=== PATIENT | male | born 1935 | race Caucasian/White ===

== ENCOUNTER 2017-08-26 12:10 | Inpatient (IN) | payer MEDICARE, BC ==
[2017-08-26] MEDS ORDERED: PANTOPRAZOLE 40 MG/10 ML VIAL IVP STA (12:38)
--- NOTE | 2017-08-26 12:42 | ED ---
General Adult HPI - General Chief complaint: GI Bleed Stated complaint: Black Stool Time Seen by Provider: 08/26/17 12:30 Source: patient Mode of arrival: ambulatory Limitations: no limitations - History of Present Illness Initial comments: Maicol Avery is an 81-year-old male with a past medical history significant for A. 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 Patient presents to the emergency department today for evaluation of black stools. Patient reports that a little over one week ago he was diagnosed with gout, he was prescribed a medication which he believes was allopurinol. He reports that taking this medication caused him some abdominal cramping and GI upset so he discontinue the medication. He reports that he has been able to eat and drink a normal diet since that time. He reports that he was in his usual state of health yesterday. Patient reports he woke this morning and had a bowel movement that was dark black, he has been advised in the past that dark black stools could indicate bleeding in his GI tract so he came to the emergency department for evaluation. Patient reports that today he is feeling somewhat fatigued and mildly lightheaded with activity. He denies any abdominal pain, chest pain, shortness of breath. Orts he has been on Coumadin for a long period of time, he believes he last had his INR checked last month. He does not report any significant increase in his bruising, he denies any other spontaneous bleeding including nosebleeds or bleeding from the gums. She denies any history of gastric ulcers or GI bleeding in the past aside from expected post operative bleeding which she experienced after the Whipple. - Related Data Home Medications Medication Instructions Recorded Confirmed Albuterol Sulfate [Proair Hfa] 1 - 2 puff INHALATION RT-Q6H PRN 08/24/14 Ascorbic Acid [Vitamin C] 1 tab PO DAILY 08/24/14 08/26/17 Atenolol 25 mg PO HS 08/24/14 08/26/17 Budesonide [Pulmicort] 0.5 mg INHALATION RT-BID 08/24/14 08/26/17 Calcium Polycarbophil [Fibercon] 625 mg PO BID 08/24/14 08/26/17 Cholecalciferol [Vitamin D3] 1 tab PO DAILY 08/24/14 08/26/17 Montelukast [Singulair] 10 mg PO HS 08/24/14 08/26/17 Pravastatin Sodium [Pravachol] 20 mg PO HS 08/24/14 08/26/17 Glucosam/Az-Msm1/C/Tarun/Bosw 1 tab PO BID 10/21/14 08/26/17 [Glucosamine-Chondroitin Tablet] Creon (Unknown Dose) 1 cap PO AC-TID 08/26/17 08/26/17 Furosemide [Lasix] 20 mg PO QAM PRN 08/26/17 08/26/17 Omeprazole 20 mg PO DAILY PRN 08/26/17 08/26/17 Previous Rx's Medication Instructions Recorded Losartan [Cozaar] 25 mg PO DAILY #30 tab 08/28/14 Allergies Allergy/AdvReac Type Severity Reaction Status Date / Time amoxicillin Allergy Unknown Verified 08/26/17 12:50 shellfish derived [Shrimp] AdvReac Nausea & Verified 08/26/17 12:50 Vomiting Review of Systems ROS Statement: Those systems with pertinent positive or pertinent negative responses have been documented in the HPI. ROS Other: All systems not noted in ROS Statement are negative. Constitutional: Denies: fever, chills Respiratory: Denies: cough, dyspnea Cardiovascular: Denies: chest pain, palpitations Endocrine: Reports: fatigue Gastrointestinal: Reports: abdominal pain, melena Genitourinary: Denies: urgency, dysuria, hematuria Musculoskeletal: Denies: back pain Skin: Denies: rash, lesions Neurological: Denies: headache, weakness Psychiatric: Denies: anxiety, depression Hematological/Lymphatic: Reports: easy bleeding, easy bruising Past Medical History Past Medical History: Atrial Fibrillation, Asthma, COPD, Hyperlipidemia, Hypertension Additional Past Medical History / Comment(s): irregular heart History of Any Multi-Drug Resistant Organisms: None Reported Past Surgical History: Orthopedic Surgery Additional Past Surgical History / Comment(s): right ankle, umbilical and right shoulder, right knee replaced, pancreatic surgery Past Anesthesia/Blood Transfusion Reactions: No Reported Reaction Past Psychological History: No Psychological Hx Reported Smoking Status: Never smoker Past Alcohol Use History: None Reported Past Drug Use History: None Reported - Past Family History Mother Family Medical History: Renal Disease Brother(s) Family Medical History: Diabetes Mellitus General Exam Limitations: no limitations General appearance: alert, in no apparent distress Head exam: Present: atraumatic, normocephalic Eye exam: Present: normal appearance, PERRL ENT exam: Present: normal exam Respiratory exam: Absent: respiratory distress Cardiovascular Exam: Present: regular rate, irregular rhythm GI/Abdominal exam: Present: soft. Absent: distended, tenderness Rectal exam: Present: normal inspection, normal rectal tone, heme (+) stool, black stool, bloody stool Extremities exam: Present: normal inspection Back exam: Present: normal inspection Neurological exam: Present: alert, oriented X3 Psychiatric exam: Present: normal affect, normal mood Skin exam: Present: warm, dry, pallor Course Vital Signs 08/26/17 08/26/17 08/26/17 12:23 12:56 13:32 Temperature 98.3 F Pulse Rate 82 80 90 Respiratory 16 16 16 Rate Blood Pressure 131/71 126/73 118/74 O2 Sat by Pulse 93 L 98 98 Oximetry 08/26/17 15:01 Temperature 97.6 F Pulse Rate 72 Respiratory 16 Rate Blood Pressure 127/78 O2 Sat by Pulse 96 Oximetry Medical Decision Making - Medical Decision Making Patient was seen and evaluated, history was obtained from the patient, his and review of medical record Patient on Coumadin now experiencing black bloody stools Patient has mild conjunctival pallor, rectal exam reveals melanotic stool Labs were ordered IV Protonix ordered Reveal hemoglobin of 12.3 which is a decrease from the previous hemoglobin of 14.0 in the fall of 2015 INR is 3.2, this is slightly above goal At this time I feel the patient requires admission for further evaluation by gastroenterology, this plan was discussed with the patient and his at bedside who are agreeable Patient care was discussed with Dr. Craig subsequent admission, recommended we hold by mouth Coumadin and consult gastroenterology admission and consult orders were placed Patient remained hemodynamically stable throughout his ED stay - Lab Data Result diagrams: 08/26/17 12:45 08/26/17 12:45 Lab Results 08/26/17 08/26/17 08/26/17 Range/Units 12:45 12:45 12:45 WBC 12.0 H (3.8-10.6) k/uL RBC 4.01 L (4.30-5.90) m/uL Hgb 12.3 L (13.0-17.5) gm/dL Hct 36.3 L (39.0-53.0) % MCV 90.5 (80.0-100.0) fL MCH 30.6 (25.0-35.0) pg MCHC 33.7 (31.0-37.0) g/dL RDW 14.0 (11.5-15.5) % Plt Count 248 (150-450) k/uL Neutrophils % 80 % Lymphocytes % 12 % Monocytes % 5 % Eosinophils % 1 % Basophils % 0 % Neutrophils # 9.6 H (1.3-7.7) k/uL Lymphocytes # 1.4 (1.0-4.8) k/uL Monocytes # 0.6 (0-1.0) k/uL Eosinophils # 0.1 (0-0.7) k/uL Basophils # 0.1 (0-0.2) k/uL PT (9.0-12.0) sec INR (<1.2) APTT (22.0-30.0) sec Sodium 145 (137-145) mmol/L Potassium 4.4 (3.5-5.1) mmol/L Chloride 108 H (98-107) mmol/L Carbon Dioxide 22 (22-30) mmol/L Anion Gap 15 mmol/L BUN 45 H (9-20) mg/dL Creatinine 1.30 H (0.66-1.25) mg/dL Est GFR (CKD-EPI)AfAm 60 (>60 ml/min/1.73 sqM) Est GFR (CKD-EPI)NonAf 52 (>60 ml/min/1.73 sqM) Glucose 120 H (74-99) mg/dL Plasma Lactic Acid Jose A 1.6 (0.7-2.0) mmol/L Calcium 9.5 (8.4-10.2) mg/dL Total Bilirubin 0.5 (0.2-1.3) mg/dL AST 24 (17-59) U/L ALT 26 (21-72) U/L Alkaline Phosphatase 79 (38-126) U/L Troponin I (0.000-0.034) ng/mL Total Protein 6.6 (6.3-8.2) g/dL Albumin 4.0 (3.5-5.0) g/dL Stool Occult Blood (Negative) Blood Type Blood Type Recheck Antibody Screen Spec Expiration Date 08/26/17 08/26/17 08/26/17 Range/Units 12:45 12:45 12:45 WBC (3.8-10.6) k/uL RBC (4.30-5.90) m/uL Hgb (13.0-17.5) gm/dL Hct (39.0-53.0) % MCV (80.0-100.0) fL MCH (25.0-35.0) pg MCHC (31.0-37.0) g/dL RDW (11.5-15.5) % Plt Count (150-450) k/uL Neutrophils % % Lymphocytes % % Monocytes % % Eosinophils % % Basophils % % Neutrophils # (1.3-7.7) k/uL Lymphocytes # (1.0-4.8) k/uL Monocytes # (0-1.0) k/uL Eosinophils # (0-0.7) k/uL Basophils # (0-0.2) k/uL PT 29.0 H (9.0-12.0) sec INR 3.2 H (<1.2) APTT 32.3 H (22.0-30.0) sec Sodium (137-145) mmol/L Potassium (3.5-5.1) mmol/L Chloride (98-107) mmol/L Carbon Dioxide (22-30) mmol/L Anion Gap mmol/L BUN (9-20) mg/dL Creatinine (0.66-1.25) mg/dL Est GFR (CKD-EPI)AfAm (>60 ml/min/1.73 sqM) Est GFR (CKD-EPI)NonAf (>60 ml/min/1.73 sqM) Glucose (74-99) mg/dL Plasma Lactic Acid Jose A (0.7-2.0) mmol/L Calcium (8.4-10.2) mg/dL Total Bilirubin (0.2-1.3) mg/dL AST (17-59) U/L ALT (21-72) U/L Alkaline Phosphatase (38-126) U/L Troponin I 0.021 (0.000-0.034) ng/mL Total Protein (6.3-8.2) g/dL Albumin (3.5-5.0) g/dL Stool Occult Blood Positive (Negative) Blood Type Blood Type Recheck Antibody Screen Spec Expiration Date 08/26/17 Range/Units 12:45 WBC (3.8-10.6) k/uL RBC (4.30-5.90) m/uL Hgb (13.0-17.5) gm/dL Hct (39.0-53.0) % MCV (80.0-100.0) fL MCH (25.0-35.0) pg MCHC (31.0-37.0) g/dL RDW (11.5-15.5) % Plt Count (150-450) k/uL Neutrophils % % Lymphocytes % % Monocytes % % Eosinophils % % Basophils % % Neutrophils # (1.3-7.7) k/uL Lymphocytes # (1.0-4.8) k/uL Monocytes # (0-1.0) k/uL Eosinophils # (0-0.7) k/uL Basophils # (0-0.2) k/uL PT (9.0-12.0) sec INR (<1.2) APTT (22.0-30.0) sec Sodium (137-145) mmol/L Potassium (3.5-5.1) mmol/L Chloride (98-107) mmol/L Carbon Dioxide (22-30) mmol/L Anion Gap mmol/L BUN (9-20) mg/dL Creatinine (0.66-1.25) mg/dL Est GFR (CKD-EPI)AfAm (>60 ml/min/1.73 sqM) Est GFR (CKD-EPI)NonAf (>60 ml/min/1.73 sqM) Glucose (74-99) mg/dL Plasma Lactic Acid Jose A (0.7-2.0) mmol/L Calcium (8.4-10.2) mg/dL Total Bilirubin (0.2-1.3) mg/dL AST (17-59) U/L ALT (21-72) U/L Alkaline Phosphatase (38-126) U/L Troponin I (0.000-0.034) ng/mL Total Protein (6.3-8.2) g/dL Albumin (3.5-5.0) g/dL Stool Occult Blood (Negative) Blood Type O Positive Blood Type Recheck No Antibody Screen NEGATIVE Spec Expiration Date 08/29/2017 - 2345 Disposition Clinical Impression: Melena, Upper gastrointestinal hemorrhage Disposition: ADMITTED IP TO THIS [facility] Condition: Good Is patient prescribed a controlled substance at d/c from ED?: No Decision Date: 08/26/17 Decision Time: 13:48
[2017-08-26 13:13] LABS: Basophils # (A) 0.1 k/uL (0-0.2); Basophils % (A) 0 %; Eosinophils # (A) 0.1 k/uL (0-0.7); Eosinophils % (A) 1 %; HCT 36.3 % (39.0-53.0); HGB 12.3 gm/dL (13.0-17.5); Lymphocytes # (A) 1.4 k/uL (1.0-4.8); Lymphocytes % (A) 12 %; MCH 30.6 pg (25.0-35.0); MCHC 33.7 g/dL (31.0-37.0); MCV 90.5 fL (80.0-100.0); Mean Platelet Volume 8.5; Monocytes # (A) 0.6 k/uL (0-1.0); Monocytes % (A) 5 %; Neutrophils # (A) 9.6 k/uL (1.3-7.7); Neutrophils % (A) 80 %; Platelet Count 248 k/uL (150-450); RBC 4.01 m/uL (4.30-5.90)
[2017-08-26 13:18] LABS: INR 3.2 (<1.2); Partial Thromboplastin Time 32.3 sec (22.0-30.0)
[2017-08-26 13:20] LABS: Calcium 9.5 mg/dL (8.4-10.2); Potassium 4.4 mmol/L (3.5-5.1); Total Bilirubin 0.5 mg/dL (0.2-1.3); Total Protein 6.6 g/dL (6.3-8.2)
[2017-08-26] MEDS ORDERED: NALOXONE 0.4 MG/ML 1 ML VIAL IV PRN ×2 (13:42→15:56)
[2017-08-26] MEDS ORDERED: FUROSEMIDE 40 MG TAB PO PRN (13:45)
[2017-08-26] MEDS ORDERED: PHYTONADIONE ORAL 5 MG/5 ML ORAL.SYRG PO STA (16:56)
--- NOTE | 2017-08-26 17:06 | P.HPIM ---
History of Present Illness H&P Date: 08/26/17 Chief Complaint: Melena This is an 81-year-old gentleman patient of Dr. Andre Martinez. He has underlying history of chronic atrial fibrillation on maintenance Coumadin for anticoagulation, history of pancreatic lesion, they suspected that this 95% cancer that time, however and was taken out with a Whipple's procedure 2014, this was benign. Since then patient was on Creon, also history of asthma, COPD , hyperlipidemia, hypertension, Patient presented to the emergency room secondary to acute melena that started this morning, he has 2 black stools, without diarrhea no hematochezia. Patient denies any NSAID use, steroid, and denies any alcohol use. He is chronically on intermittent dosing for Prilosec as advised by her [facility] physician, patient. He had abdominal pain approximately one week ago, not cramping epigastric region, patient thought this was related to the gout medication "allopurinol" ? that was started, as the uric acid level was high and that he does have toe pain. 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 Patient was admitted to ICU, for closer monitoring, Coumadin will be held, one- time dose of by mouth vitamin K 5 mg, Review of Systems Constitutional: Reports as per HPI, Denies anorexia, Denies chills, Denies chronic headaches, Denies chronic pain, Denies daytime sleepiness, Denies fatigue, Denies fever, Denies lethargy, Denies malaise, Denies night sweats, Denies poor appetite, Denies sweats, Denies weakness, Denies weight gain, Denies weight loss Ears, nose, mouth and throat: Reports as per HPI, Denies ant. neck pain, Denies bleeding gums, Denies dental pain, Denies dysphagia, Denies epistaxis, Denies headache, Denies hoarseness, Denies mouth pain, Denies nasal congestion, Denies nasal discharge, Denies neck fullness/pressure, Denies neck lump, Denies nose pain, Denies odynophagia, Denies post-nasal drip, Denies sinus pain, Denies sinus pressure, Denies swelling in mouth, Denies swelling in throat, Denies sore throat, Denies vertigo, Denies voice changes Cardiovascular: Reports as per HPI, Denies chest pain, Denies claudication, Denies decreased exercise tolerance, Denies dyspnea on exertion, Denies edema, Denies high blood pressure, Denies irregular heart beat, Denies leg edema, Denies lightheadedness, Denies orthopnea, Denies palpitations, Denies paroxysmal nocturnal dyspnea, Denies phlebitis, Denies rapid heart beat, Denies shortness of breath, Denies syncope Respiratory: Reports as per HPI, Denies congestion, Denies cough, Denies cough with sputum, Denies dyspnea, Denies excessive sputum, Denies hemoptysis, Denies home oxygen, Denies pain, Denies pain on inspiration, Denies pleurisy, Denies respiratory infections, Denies sleep apnea, Denies snoring, Denies wheezing Gastrointestinal: Reports as per HPI, Reports abdominal pain, Reports coffee ground emesis, Reports indigestion, Reports melena, Denies belching, Denies bloating, Denies BRBPR, Denies change in bowel habits, Denies constipation, Denies diarrhea, Denies dyspepsia, Denies early satiety, Denies excessive gas, Denies heartburn, Denies hematemesis, Denies hematochezia, Denies jaundice, Denies lactose intolerance, Denies loss of appetite, Denies nausea, Denies vomiting Genitourinary: Reports as per HPI, Denies decreased libido, Denies difficulties fathering child, Denies discharge, Denies dysuria, Denies erectile dysfunction, Denies flank pain, Denies genital pain, Denies genital sores, Denies hematuria, Denies impotence, Denies incontinence, Denies kidney stones, Denies nocturia, Denies polyuria, Denies testicular lump, Denies testicular pain, Denies urinary frequency, Denies urinary hesitancy, Denies urinary retention Musculoskeletal: Reports as per HPI, Denies arm numbness/tingling, Denies atrophy, Denies fractures, Denies frequent falls, Denies gait dysfunction, Denies hot joints, Denies leg numbness/tingling, Denies limitation of motion, Denies loss of height, Denies low back pain, Denies morning stiffness, Denies muscle cramps, Denies muscle weakness, Denies myalgias, Denies neck pain, Denies neck stiffness, Denies prior amputations, Denies redness of joints, Denies shooting arm pain, Denies shooting leg pain Integumentary: Reports as per HPI, Denies acne, Denies boils, Denies brittle nails, Denies change in hair/nails, Denies color changes, Denies darkening of skin, Denies depigmentation, Denies dryness, Denies foot/leg ulcers, Denies growths, Denies hirsutism, Denies lesions, Denies onychomycosis, Denies pruritus , Denies rash, Denies sores, Denies striae, Denies unusual bruising, Denies wounds Neurological: Reports as per HPI, Denies aphasia, Denies ataxia, Denies balance difficulties, Denies burning pain, Denies change in mentation, Denies change in smell/taste, Denies change in speech, Denies confusion, Denies convulsions, Denies double vision, Denies gait dysfunction, Denies head injury, Denies headaches, Denies hearing difficulties, Denies lack of coordination, Denies loss of vision, Denies memory loss, Denies migraines, Denies motor disturbance, Denies numbness, Denies paralysis, Denies paresthesias, Denies seizures, Denies sensory deficit, Denies spasticity, Denies syncope, Denies tic, Denies tingling , Denies transient paralysis, Denies tremors, Denies vertigo, Denies weakness, Denies visual changes Psychiatric: Reports as per HPI, Denies anhedonia, Denies anxiety, Denies anxiety attacks, Denies change in appetite, Denies change in libido, Denies change in sleep habits, Denies confusion, Denies depression, Denies difficulty concentrating, Denies disorientation, Denies hallucinations, Denies hopelessness , Denies hypersomnia, Denies insomnia, Denies irritability, Denies memory loss, Denies mood swings, Denies paranoia, Denies sadness/tearfulness, Denies sleep disturbances, Denies suicidal ideation Endocrine: Reports as per HPI Hematologic/Lymphatic: Reports as per HPI, Denies easy bleeding, Denies easy bruising, Denies lymphadenopathy, Denies lymphedema, Denies thrombophilia Allergic/Immunologic: Reports as per HPI Past Medical History Past Medical History: Atrial Fibrillation, Asthma, Chest Pain / Angina, Hyperlipidemia, Hypertension, Osteoarthritis (OA), Pneumonia, Sleep Apnea/CPAP/ BIPAP Additional Past Medical History / Comment(s): a fib takess coumadin, seasonal allergies, past ulcer, was recnetly started on allopurinal for gout in big toe but stated after 2 days started getting abd cramping gi upset and stopped taking it., past panreatic lesion had whipple procedure(turned out to be benign) . no cpap used. pt stated recieved a pne vaccine after age 66 but not sure of date and dr gant closed -[place] toverify date at time of admit. History of Any Multi-Drug Resistant Organisms: None Reported Past Surgical History: Heart Catheterization, Orthopedic Surgery Additional Past Surgical History / Comment(s): orif right ankle-screws in place , umbilical hernia, right shoulder-rotator cuff repair, right knee replaced, whipple procedure, dental implants, cataracts-lens implants,colonoscopy Past Anesthesia/Blood Transfusion Reactions: No Reported Reaction Additional Past Anesthesia/Blood Transfusion Reaction / Comment(s): never recieved blood Smoking Status: Never smoker - Past Family History Father History Unknown: Yes Additional Family Medical History / Comment(s): pt was only 1.5 years old when his father . Mother Family Medical History: Renal Disease Brother(s) Family Medical History: Diabetes Mellitus Medications and Allergies Home Medications Medication Instructions Recorded Confirmed Type Albuterol Sulfate [Proair Hfa] 1 - 2 puff INHALATION RT-Q6H PRN 08/24/14 History Ascorbic Acid [Vitamin C] 1 tab PO DAILY 08/24/14 08/26/17 History Atenolol 25 mg PO HS 08/24/14 08/26/17 History Budesonide [Pulmicort] 0.5 mg INHALATION RT-BID 08/24/14 08/26/17 History Calcium Polycarbophil [Fibercon] 625 mg PO BID 08/24/14 08/26/17 History Cholecalciferol [Vitamin D3] 1 tab PO DAILY 08/24/14 08/26/17 History Montelukast [Singulair] 10 mg PO HS 08/24/14 08/26/17 History Pravastatin Sodium [Pravachol] 20 mg PO HS 08/24/14 08/26/17 History Losartan [Cozaar] 25 mg PO DAILY #30 tab 08/28/14 08/26/17 Rx Glucosam/Az-Msm1/C/Tarun/Bosw 1 tab PO BID 10/21/14 08/26/17 History [Glucosamine-Chondroitin Tablet] Creon (Unknown Dose) 1 cap PO AC-TID 08/26/17 08/26/17 History Furosemide [Lasix] 20 mg PO QAM PRN 08/26/17 08/26/17 History Omeprazole 20 mg PO DAILY PRN 08/26/17 08/26/17 History Allergies Allergy/AdvReac Type Severity Reaction Status Date / Time amoxicillin Allergy Unknown Verified 08/26/17 12:50 shellfish derived [Shrimp] AdvReac Nausea & Verified 08/26/17 12:50 Vomiting Physical Exam Vitals: Vital Signs Temp Pulse Resp BP Pulse Ox 08/26/17 15:01 97.6 F 72 16 127/78 96 08/26/17 13:32 90 16 118/74 98 08/26/17 12:56 80 16 126/73 98 08/26/17 12:23 98.3 F 82 16 131/71 93 L Intake and Output 08/26/17 08/26/17 08/26/17 06:59 14:59 22:59 Other: Weight 92.986 kg - Constitutional General appearance: cooperative, no acute distress, obese - EENT Eyes: anicteric sclerae, EOMI, PERRLA, normal appearance ENT: NA/AT, normal oropharynx - Neck Neck: no lymphadenopathy, normal ROM, no other, no rigidity, no stridor, no thyromegaly - Respiratory Respiratory: bilateral: CTA, negative: diminished, dullness, rales, rhonchi, wheezing - Cardiovascular Rhythm: regular Heart sounds: normal: S1, S2 Abnormal Heart Sounds: no systolic murmur, no diastolic murmur, no rub, no S3 Gallop, no S4 Gallop, no click, no other - Gastrointestinal General gastrointestinal: normal bowel sounds, tenderness (Epigastric) Localized gastrointestinal: tender: epigastric periumbilical - Integumentary Integumentary: decreased turgor, normal - Neurologic Neurologic: CNII-XII intact - Musculoskeletal Musculoskeletal: gait normal, strength equal bilaterally - Psychiatric Psychiatric: A&O x's 3, appropriate affect, intact judgment & insight Results CBC & Chem 7: 08/26/17 12:45 04 12:45 Labs: Abnormal Lab Results - Last 24 Hours (Table) 08/26/17 08/26/17 08/26/17 Range/Units 12:45 12:45 12:45 WBC 12.0 H (3.8-10.6) k/uL RBC 4.01 L (4.30-5.90) m/uL Hgb 12.3 L (13.0-17.5) gm/dL Hct 36.3 L (39.0-53.0) % Neutrophils # 9.6 H (1.3-7.7) k/uL PT 29.0 H (9.0-12.0) sec INR 3.2 H (<1.2) APTT 32.3 H (22.0-30.0) sec Chloride 108 H (98-107) mmol/L BUN 45 H (9-20) mg/dL Creatinine 1.30 H (0.66-1.25) mg/dL Glucose 120 H (74-99) mg/dL Laboratory Results WBC 12.0 k/uL (3.8-10.6) H 08/26/17 12:45 RBC 4.01 m/uL (4.30-5.90) L 08/26/17 12:45 Hgb 12.3 gm/dL (13.0-17.5) L 08/26/17 12:45 Hct 36.3 % (39.0-53.0) L 08/26/17 12:45 MCV 90.5 fL (80.0-100.0) 08/26/17 12:45 MCH 30.6 pg (25.0-35.0) 08/26/17 12:45 MCHC 33.7 g/dL (31.0-37.0) 08/26/17 12:45 RDW 14.0 % (11.5-15.5) 08/26/17 12:45 Plt Count 248 k/uL (150-450) 08/26/17 12:45 Neutrophils % 80 % 08/26/17 12:45 Lymphocytes % 12 % 08/26/17 12:45 Monocytes % 5 % 08/26/17 12:45 Eosinophils % 1 % 08/26/17 12:45 Basophils % 0 % 08/26/17 12:45 Neutrophils # 9.6 k/uL (1.3-7.7) H 08/26/17 12:45 Lymphocytes # 1.4 k/uL (1.0-4.8) 08/26/17 12:45 Monocytes # 0.6 k/uL (0-1.0) 08/26/17 12:45 Eosinophils # 0.1 k/uL (0-0.7) 08/26/17 12:45 Basophils # 0.1 k/uL (0-0.2) 08/26/17 12:45 PT 29.0 sec (9.0-12.0) H 08/26/17 12:45 INR 3.2 (<1.2) H 08/26/17 12:45 APTT 32.3 sec (22.0-30.0) H 08/26/17 12:45 Sodium 145 mmol/L (137-145) 08/26/17 12:45 Potassium 4.4 mmol/L (3.5-5.1) 08/26/17 12:45 Chloride 108 mmol/L (98-107) H 08/26/17 12:45 Carbon Dioxide 22 mmol/L (22-30) 08/26/17 12:45 Anion Gap 15 mmol/L 08/26/17 12:45 BUN 45 mg/dL (9-20) H 08/26/17 12:45 Creatinine 1.30 mg/dL (0.66-1.25) H 08/26/17 12:45 Est GFR (CKD-EPI)AfAm 60 (>60 ml/min/1.73 sqM) 08/26/17 12:45 Est GFR (CKD-EPI)NonAf 52 (>60 ml/min/1.73 sqM) 08/26/17 12:45 Glucose 120 mg/dL (74-99) H 08/26/17 12:45 Plasma Lactic Acid Jose A 1.6 mmol/L (0.7-2.0) 08/26/17 12:45 Calcium 9.5 mg/dL (8.4-10.2) 08/26/17 12:45 Total Bilirubin 0.5 mg/dL (0.2-1.3) 08/26/17 12:45 AST 24 U/L (17-59) 08/26/17 12:45 ALT 26 U/L (21-72) 08/26/17 12:45 Alkaline Phosphatase 79 U/L (38-126) 08/26/17 12:45 Troponin I 0.021 ng/mL (0.000-0.034) 08/26/17 12:45 Total Protein 6.6 g/dL (6.3-8.2) 08/26/17 12:45 Albumin 4.0 g/dL (3.5-5.0) 08/26/17 12:45 Stool Occult Blood Positive (Negative) 08/26/17 12:45 Blood Type O Positive 08/26/17 12:45 Blood Type Recheck No 08/26/17 12:45 Antibody Screen NEGATIVE 08/26/17 12:45 Spec Expiration Date 08/29/2017 - 2417 08/26/17 12:45 Thrombosis Risk Factor Assmnt - DVT/VTE Prophylaxis DVT/VTE Prophylaxis: Mechanical Prophylaxis ordered, Contraindicated - See note Assessment and Plan Plan: 1. Acute GI bleed, upper GI suspected, patient started be on PPI, stop Coumadin , reverse Coumadin with vitamin K 5 mg 1 dose, monitor for signs off bleeding, patient might need blood transfusion, will transfused under 7.0, iron studies to be done to evaluate iron requirements, consult GI, patient will be placed in ICU for close observation, clear fluid diet, IV Protonix 2. Chronic atrial fibrillation, on anticoagulation, Coumadin on hold secondary to acute GI bleed 3. Hypertensive cardiovascular disease losartan 25 mg daily, hold aspirin, Pravachol 20 mg daily 3. Hyperlipidemia on Pravachol 20 4. Asthma asymptomatic/COPD asymptomatic maintenance Pulmicort 0.5 mg twice a day continue Singulair 10 5. Benign pancreatic mass requiring Whipple's procedure 2014 6. 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 BPH without lower tract symptomatology 8. [id number] with recent gout denied NSAIDs shows all prednisone use, patient reluctant on to start taking allopurinol, this could be evaluated as outpatient 9. BPH without lower tract symptomatology 10. CK D stage III, at baseline last creatinine 1.10 August 2014 similar to current entry is GI prophylaxis on IV Protonix for GI bleed DVT prophylaxis, RADHA hose and SCD secondary to acute GI bleed contraindicated chemical prophylaxis
[2017-08-26 17:31] LABS: Appearance,Urine Clear (Clear); Bilirubin,Urine Negative (Negative); Blood,Urine Negative (Negative); Color,Urine Light Yellow; Glucose,Urine (UA) Negative (Negative); Ketones,Urine Negative (Negative); Leukocyte Esterase,Urine Negative (Negative); Nitrite,Urine Negative (Negative); Protein,Urine Negative (Negative); Specific Gravity,Urine 1.014 (1.001-1.035); Urobilinogen,Urine <2.0 mg/dL (<2.0)
[2017-08-26 18:24] LABS: HCT 31.7 % (39.0-53.0); HGB 10.6 gm/dL (13.0-17.5); MCH 30.3 pg (25.0-35.0); MCHC 33.5 g/dL (31.0-37.0); MCV 90.4 fL (80.0-100.0); Mean Platelet Volume 10.1; Platelet Count 198 k/uL (150-450); RBC 3.51 m/uL (4.30-5.90); RDW 14.1 % (11.5-15.5); WBC 9.5 k/uL (3.8-10.6)
[2017-08-26 19:39] LABS: Glucose,Whole Blood 127 mg/dL (75-99)
[2017-08-26] MEDS: ATENOLOL 25 MG TAB PO SCH (20:52)
[2017-08-26] MEDS: PRAVASTATIN SODIUM 20 MG TAB PO SCH (20:53)
[2017-08-26 23:06] LABS: HCT 29.3 % (39.0-53.0); HGB 9.6 gm/dL (13.0-17.5); MCH 29.8 pg (25.0-35.0); MCHC 32.6 g/dL (31.0-37.0); MCV 91.4 fL (80.0-100.0); Mean Platelet Volume 8.8; Platelet Count 178 k/uL (150-450); RBC 3.21 m/uL (4.30-5.90); RDW 14.4 % (11.5-15.5); WBC 8.5 k/uL (3.8-10.6)
[2017-08-27 05:36] LABS: Basophils % (A) 0 %; Eosinophils # (A) 0.2 k/uL (0-0.7); Eosinophils % (A) 3 %; HCT 28.4 % (39.0-53.0); HGB 9.4 gm/dL (13.0-17.5); Lymphocytes # (A) 1.8 k/uL (1.0-4.8); Lymphocytes % (A) 27 %; MCH 30.1 pg (25.0-35.0); MCHC 32.9 g/dL (31.0-37.0); MCV 91.5 fL (80.0-100.0); Mean Platelet Volume 9.2; Monocytes # (A) 0.4 k/uL (0-1.0); Monocytes % (A) 6 %; Neutrophils # (A) 4.4 k/uL (1.3-7.7); Neutrophils % (A) 63 %; Platelet Count 191 k/uL (150-450); RBC 3.11 m/uL (4.30-5.90); RDW 14.4 % (11.5-15.5)
[2017-08-27 05:41] LABS: INR 2.3 (<1.2); Prothrombin Time 20.8 sec (9.0-12.0)
[2017-08-27 05:48] LABS: Albumin 2.9 g/dL (3.5-5.0); Calcium 8.4 mg/dL (8.4-10.2); Magnesium 1.8 mg/dL (1.6-2.3); Phosphorus 3.3 mg/dL (2.5-4.5); Potassium 4.6 mmol/L (3.5-5.1); Total Bilirubin 0.8 mg/dL (0.2-1.3); Total Protein 5.1 g/dL (6.3-8.2)
[2017-08-27] MEDS: MAGNESIUM SULFATE-D5W PMX 1 GM in DEXTROSE/WATER 1 100ML.BAG IVPB SCH ×2 (08:12→09:33)
--- NOTE | 2017-08-27 09:23 | P.CNPUL ---
History of Present Illness Consult date: 08/27/17 Chief complaint: GI bleeding History of present illness: A 9-year-old male patient who was admitted to the ICU yesterday because of GI bleeding and the patient had melanotic stools, 2 at home and another one here in the hospital. The patient got admitted to the ICU and the patient has not bled since. The patient is on long-term articulation with warfarin for chronic atrial fibrillation fibrillation. The patient's INR was at 3.2 at a time of admission. He had a stable creatinine of 1.3 with a BUN of 45. No hematemesis. No coffee-ground emesis. No abdominal pain. No chest pain. His cardiac rhythm is still in atrial fibrillation at a controlled rate of asked the. No chest pain. No shortness of breath. No previous bouts of GI bleed. The patient denies having any liver disease. No intake of any nonsteroidal anti -inflammatory medication. Cardiac catheterization from October 2014 showed mild obstructive coronary artery disease involving the left circumflex and the right coronary artery and the patient had a normal left ejection fraction and end- diastolic pressure. Noted the patient was given 5 mg of vitamin K and today's INR is down to 2.3. The patient also received no blood. Review of Systems Constitutional: Denies chills, Denies fever Eyes: denies blurred vision, denies bulging eye, denies decreased vision Ears: bilateral: decreased hearing, deny: ear discharge, earache, tinnitus Ears, nose, mouth and throat: Denies headache, Denies sore throat Cardiovascular: Denies chest pain, Denies shortness of breath Respiratory: Denies cough Gastrointestinal: Reports melena Genitourinary: Reports as per HPI Musculoskeletal: Denies myalgias Musculoskeletal: absent: ankle pain, ankle stiffness, ankle swelling Integumentary: Denies pruritus, Denies rash Neurological: Denies numbness, Denies weakness Psychiatric: Denies anxiety, Denies depression Endocrine: Reports as per HPI Hematologic/Lymphatic: Reports as per HPI Allergic/Immunologic: Reports as per HPI 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 and former to be benign, seasonal environmental ALLERGIES History of Any Multi-Drug Resistant Organisms: None Reported Past Surgical History: Heart Catheterization, Orthopedic Surgery Additional Past Surgical History / Comment(s): orif right ankle-screws in place , umbilical hernia, right shoulder-rotator cuff repair, right knee replaced, whipple procedure, dental implants, cataracts-lens implants,colonoscopy Past Anesthesia/Blood Transfusion Reactions: No Reported Reaction Additional Past Anesthesia/Blood Transfusion Reaction / Comment(s): never recieved blood Smoking Status: Never smoker - Past Family History Father History Unknown: Yes Additional Family Medical History / Comment(s): pt was only 1.5 years old when his father . Mother Family Medical History: Renal Disease Brother(s) Family Medical History: Diabetes Mellitus Medications and Allergies Home Medications Medication Instructions Recorded Confirmed Type Albuterol Sulfate [Proair Hfa] 1 - 2 puff INHALATION RT-Q6H PRN 08/24/14 History Ascorbic Acid [Vitamin C] 1 tab PO DAILY 08/24/14 08/26/17 History Atenolol 25 mg PO HS 08/24/14 08/26/17 History Budesonide [Pulmicort] 0.5 mg INHALATION RT-BID 08/24/14 08/26/17 History Calcium Polycarbophil [Fibercon] 625 mg PO BID 08/24/14 08/26/17 History Cholecalciferol [Vitamin D3] 1 tab PO DAILY 08/24/14 08/26/17 History Montelukast [Singulair] 10 mg PO HS 08/24/14 08/26/17 History Pravastatin Sodium [Pravachol] 20 mg PO HS 08/24/14 08/26/17 History Losartan [Cozaar] 25 mg PO DAILY #30 tab 08/28/14 08/26/17 Rx Glucosam/Az-Msm1/C/Tarun/Bosw 1 tab PO BID 10/21/14 08/26/17 History [Glucosamine-Chondroitin Tablet] Creon (Unknown Dose) 1 cap PO AC-TID 08/26/17 08/26/17 History Furosemide [Lasix] 20 mg PO QAM PRN 08/26/17 08/26/17 History Omeprazole 20 mg PO DAILY PRN 08/26/17 08/26/17 History Allergies Allergy/AdvReac Type Severity Reaction Status Date / Time amoxicillin Allergy Unknown Verified 08/26/17 12:50 shellfish derived [Shrimp] AdvReac Nausea & Verified 08/26/17 12:50 Vomiting Physical Exam Vitals: Vital Signs Temp Pulse Resp BP Pulse Ox 08/27/17 07:00 68 23 85/61 93 L 08/27/17 06:00 70 23 102/62 95 08/27/17 05:00 97.9 F 59 L 20 96/54 96 08/27/17 04:00 62 23 91/49 95 08/27/17 03:00 64 22 90/55 96 08/27/17 02:00 64 24 88/54 93 L 08/27/17 01:00 75 48 H 90/48 97 08/27/17 00:00 69 23 96/56 97 08/26/17 23:00 70 20 119/61 95 08/26/17 22:05 72 12 91/45 96 08/26/17 22:00 69 20 102/63 96 08/26/17 21:30 68 21 121/67 96 08/26/17 21:00 73 18 130/62 97 08/26/17 20:30 78 22 118/66 99 08/26/17 20:10 84 18 118/66 98 08/26/17 20:00 98.2 F 72 25 H 133/72 98 08/26/17 19:50 78 21 133/72 96 08/26/17 19:40 72 25 H 133/72 99 08/26/17 19:34 133/72 99 08/26/17 17:22 98.5 F 73 16 129/79 97 08/26/17 15:01 97.6 F 72 16 127/78 96 08/26/17 13:32 90 16 118/74 98 08/26/17 12:56 80 16 126/73 98 08/26/17 12:23 98.3 F 82 16 131/71 93 L Intake and Output 08/26/17 08/27/17 08/27/17 22:59 06:59 14:59 Output Total 0 250 Balance 0 -250 Output: Urine 0 250 Other: Voiding Method Toilet Toilet Urinal Urinal # Voids 0 0 # Bowel Movements 1 Weight 87.5 kg - Constitutional General appearance: cooperative, no acute distress - EENT Eyes: anicteric sclerae, EOMI, PERRLA, normal appearance ENT: NA/AT, normal oropharynx - Neck Neck: no lymphadenopathy, normal ROM, no other, no rigidity, no stridor, no thyromegaly - Respiratory Respiratory: bilateral: CTA, negative: diminished, dullness, rales, rhonchi, wheezing - Cardiovascular Rhythm: Consistent with atrial fibrillation the patient has an irregular rhythm Heart sounds: normal: S1, S2. Irregular Abnormal Heart Sounds: no systolic murmur, no diastolic murmur, no rub, no S3 Gallop, no S4 Gallop, no click, no other - Gastrointestinal General gastrointestinal: normal bowel sounds, no tenderness and abdominal exam is soft,Abdominal exam revealed normal bowel sounds. The abdomen was soft, non- tender, and without masses, organomegaly, or appreciable enlargement of the abdominal aorta. - Integumentary Integumentary: decreased turgor, normal - Neurologic Neurologic: CNII-XII intact - Musculoskeletal Musculoskeletal: gait normal, strength equal bilaterally - Psychiatric Psychiatric: A&O x's 3, appropriate affect, intact judgment & insight Results - Laboratory Findings CBC and BMP: 08/27/17 05:05 08/27/17 05:05 PT/INR, D-dimer PT 20.8 sec (9.0-12.0) H 08/27/17 05:05 INR 2.3 (<1.2) H 08/27/17 05:05 Abnormal lab findings: Abnormal Labs 08/26/17 08/26/17 08/26/17 12:45 12:45 12:45 WBC 12.0 H RBC 4.01 L Hgb 12.3 L Hct 36.3 L Neutrophils # 9.6 H PT 29.0 H INR 3.2 H APTT 32.3 H Chloride 108 H BUN 45 H Creatinine 1.30 H Glucose 120 H POC Glucose (mg/dL) Total Protein Albumin 08/26/17 08/26/17 08/26/17 18:15 19:37 22:50 WBC RBC 3.51 L 3.21 L Hgb 10.6 L 9.6 L Hct 31.7 L 29.3 L Neutrophils # PT INR APTT Chloride BUN Creatinine Glucose POC Glucose (mg/dL) 127 H Total Protein Albumin 08/27/17 08/27/17 08/27/17 05:05 05:05 05:05 WBC RBC 3.11 L Hgb 9.4 L Hct 28.4 L Neutrophils # PT 20.8 H INR 2.3 H APTT Chloride 110 H BUN 44 H Creatinine Glucose 113 H POC Glucose (mg/dL) Total Protein 5.1 L Albumin 2.9 L Assessment and Plan Plan: Assessment 1 GI bleeding, acute, likely of an upper GI source as the patient has developed melanotic stool and there is a drop in hemoglobin from a baseline of 12.3 down to 9.4. The patient had no further episodes since the patient arrived to the ICU. Hemodynamically stable. Producing adequate amount of urine output. Most recent blood pressure is 102/62. Pulse ox on room air is 95%. The patient was given vitamin K total of 5 mg and INR is down to 2.3. GI is on the case. 2 chronic atrial fibrillation, rate controlled maintained on anticoagulation with warfarin on outpatient basis 3 hypertension 4 hyperlipidemia 5 obstructive sleep apnea. 6 gout unclear if the patient took any form of nonsteroidals on outpatient basis knowing that he was having some gouty issues on his left great toe. 7 history of Whipple's procedure for a pancreatic lesion that do not to be benign several years back Plan Put the patient on 75 sees of normal saline as maintenance. Keep the patient nothing by mouth total cleared by GI. No need for further vitamin K as long as the patient is not bleeding. Monitor the PT/INR and stop the warfarin for now. The patient IV Protonix. Stop the Lasix. He can be transferred to a medical floor once seen by gastroenterology. He will obviously need a scope to localize the site of bleeding and assess his risk
[2017-08-27] MEDS: ASCORBIC ACID 500 MG TAB PO SCH (09:33)
[2017-08-27] MEDS: LOSARTAN 25 MG TAB PO SCH (09:33)
[2017-08-27] MEDS: PANTOPRAZOLE 40 MG/10 ML VIAL IV SCH (09:52)
[2017-08-27] MEDS: SODIUM CHLORIDE 0.9% 1,000 ML IV SCH (09:52)
[2017-08-27 10:20] LABS: Iron Saturation 18.41 (15.00-50.00)
--- NOTE | 2017-08-27 11:36 | P.PN ---
Subjective Progress Note Date: 08/27/17 Principal diagnosis: GI bleed Patient continued to be hemodynamic a stable overnight no major events reported by nursing staff repeated hemoglobin last 2 times showed stability and patient stated that he was weak when he walked to the bathroom patient is still nothing by mouth at the bedside Objective - Vital Signs Vital signs: Vital Signs Temp 97.8 F 08/27/17 08:00 Pulse 73 08/27/17 09:00 Resp 30 H 08/27/17 09:00 BP 91/52 08/27/17 09:00 Pulse Ox 96 08/27/17 09:00 Intake & Output 08/26/17 08/27/17 08/27/17 18:59 06:59 18:59 Intake Total 275 Output Total 250 400 Balance -250 -125 Weight 92.986 kg 87.5 kg Intake: IV 275 Magnesium Sulfate-D5w Pmx 200 1 gm In Dextrose/Water 1 100ml.bag @ 100 mls/hr IVPB Q1H [facility] Rx#: [id number] Sodium Chloride 0.9% 1, 75 000 ml @ 75 mls/hr IV . [id number] [facility] Rx#:[id number] Output: Urine 250 400 Other: Voiding Method Toilet Toilet Urinal Urinal # Voids 0 1 # Bowel Movements 1 - Exam Gen.: in stated age, no acute distress Heart: Normal S1-S2 Lungs: Clear to auscultation bilaterally Abdomen: Soft, no tenderness, positive bowel sounds in all 4 quadrant no guarding or rebound Skin: No new rash Psych: Alert and oriented 3 Neuro: No focal deficit - Labs CBC & Chem 7: 08/27/17 05:05 08/27/17 05:05 Labs: Abnormal Lab Results - Last 24 Hours (Table) 08/26/17 08/26/17 08/26/17 Range/Units 12:45 12:45 12:45 WBC 12.0 H (3.8-10.6) k/uL RBC 4.01 L (4.30-5.90) m/uL Hgb 12.3 L (13.0-17.5) gm/dL Hct 36.3 L (39.0-53.0) % Neutrophils # 9.6 H (1.3-7.7) k/uL PT 29.0 H (9.0-12.0) sec INR 3.2 H (<1.2) APTT 32.3 H (22.0-30.0) sec Chloride 108 H (98-107) mmol/L BUN 45 H (9-20) mg/dL Creatinine 1.30 H (0.66-1.25) mg/dL Glucose 120 H (74-99) mg/dL POC Glucose (mg/dL) (75-99) mg/dL Total Protein (6.3-8.2) g/dL Albumin (3.5-5.0) g/dL 08/26/17 08/26/17 08/26/17 Range/Units 18:15 19:37 22:50 WBC (3.8-10.6) k/uL RBC 3.51 L 3.21 L (4.30-5.90) m/uL Hgb 10.6 L 9.6 L (13.0-17.5) gm/dL Hct 31.7 L 29.3 L (39.0-53.0) % Neutrophils # (1.3-7.7) k/uL PT (9.0-12.0) sec INR (<1.2) APTT (22.0-30.0) sec Chloride (98-107) mmol/L BUN (9-20) mg/dL Creatinine (0.66-1.25) mg/dL Glucose (74-99) mg/dL POC Glucose (mg/dL) 127 H (75-99) mg/dL Total Protein (6.3-8.2) g/dL Albumin (3.5-5.0) g/dL 08/27/17 08/27/17 08/27/17 Range/Units 05:05 05:05 05:05 WBC (3.8-10.6) k/uL RBC 3.11 L (4.30-5.90) m/uL Hgb 9.4 L (13.0-17.5) gm/dL Hct 28.4 L (39.0-53.0) % Neutrophils # (1.3-7.7) k/uL PT 20.8 H (9.0-12.0) sec INR 2.3 H (<1.2) APTT (22.0-30.0) sec Chloride 110 H (98-107) mmol/L BUN 44 H (9-20) mg/dL Creatinine (0.66-1.25) mg/dL Glucose 113 H (74-99) mg/dL POC Glucose (mg/dL) (75-99) mg/dL Total Protein 5.1 L (6.3-8.2) g/dL Albumin 2.9 L (3.5-5.0) g/dL Assessment and Plan Plan: 1. Acute upper GI bleed area 2. Symptomatic anemia. 3. Atrial fibrillation on Coumadin at home. 4. Hypertension. 5. Hyperlipidemia. 6. Asthma. 7. Benign prostatic up atrophy I had long discussion with the patient and his at the bedside as patient's INR is still above 2 even after giving vitamin K no EGD will be done today as patient is hemodynamically stable without further emesis. We will continue monitoring his vital signs closely continue with monitoring engineer monitor general condition and follow-up on serial hemoglobin keep patient's nothing by mouth on Tuesday evening for EGD in the morning plan discussed with power mule operator and GI specialist during rounds. Patient is agreeable along with his .
[2017-08-27 11:45] LABS: Hemoglobin A1C 6.6 % (4.0-6.0)
[2017-08-27 13:13] LABS: Basophils % (A) 0 %; Eosinophils # (A) 0.2 k/uL (0-0.7); Eosinophils % (A) 2 %; HCT 32.8 % (39.0-53.0); HGB 10.3 gm/dL (13.0-17.5); Lymphocytes # (A) 1.8 k/uL (1.0-4.8); Lymphocytes % (A) 19 %; MCH 29.3 pg (25.0-35.0); MCHC 31.4 g/dL (31.0-37.0); MCV 93.4 fL (80.0-100.0); Mean Platelet Volume 10.6; Monocytes # (A) 0.5 k/uL (0-1.0); Monocytes % (A) 5 %; Neutrophils # (A) 6.6 k/uL (1.3-7.7); Neutrophils % (A) 73 %; Platelet Count 215 k/uL (150-450); RBC 3.51 m/uL (4.30-5.90); RDW 14.4 % (11.5-15.5); WBC 9.1 k/uL (3.8-10.6)
[2017-08-27] MEDS: ATENOLOL 25 MG TAB PO SCH (20:44)
[2017-08-27] MEDS: PRAVASTATIN SODIUM 20 MG TAB PO SCH (20:44)
[2017-08-28] MEDS: SODIUM CHLORIDE 0.9% 1,000 ML IV SCH ×2 (01:30→23:24)
[2017-08-28] MEDS: PANTOPRAZOLE 40 MG/10 ML VIAL IV SCH (07:37)
[2017-08-28] MEDS: ASCORBIC ACID 500 MG TAB PO SCH (07:37)
[2017-08-28] MEDS: LOSARTAN 25 MG TAB PO SCH (07:38)
[2017-08-28 07:39] LABS: Basophils % (A) 0 %; Eosinophils # (A) 0.2 k/uL (0-0.7); Eosinophils % (A) 3 %; HCT 27.4 % (39.0-53.0); Lymphocytes # (A) 1.2 k/uL (1.0-4.8); Lymphocytes % (A) 17 %; MCH 29.8 pg (25.0-35.0); MCHC 32.2 g/dL (31.0-37.0); MCV 92.7 fL (80.0-100.0); Mean Platelet Volume 8.8; Monocytes # (A) 0.3 k/uL (0-1.0); Monocytes % (A) 5 %; Neutrophils # (A) 5.4 k/uL (1.3-7.7); Neutrophils % (A) 75 %; Platelet Count 185 k/uL (150-450); RBC 2.96 m/uL (4.30-5.90); RDW 14.4 % (11.5-15.5); WBC 7.2 k/uL (3.8-10.6)
[2017-08-28 07:41] LABS: HGB 8.8 gm/dL (13.0-17.5)
[2017-08-28 07:43] LABS: INR 1.4 (<1.2); Prothrombin Time 12.8 sec (9.0-12.0)
[2017-08-28 08:08] LABS: Calcium 8.3 mg/dL (8.4-10.2); Phosphorus 3.2 mg/dL (2.5-4.5); Potassium 4.8 mmol/L (3.5-5.1)
--- NOTE | 2017-08-28 12:08 | P.PN ---
Subjective Progress Note Date: 08/28/17 Principal diagnosis: GI bleed Patient reported black tarry stool this morning but no further nausea or vomiting patient is tolerating regular diet no major events reported nursing staff. Patient hemoglobin dropped slightly this morning but patient is sitting asymptomatic and stated that he was up to the bathroom with decreased weakness compared to yesterday Objective - Vital Signs Vital signs: Vital Signs Temp 98 F 08/28/17 06:40 Pulse 70 08/28/17 06:40 Resp 16 08/28/17 06:40 BP 130/67 08/28/17 06:40 Pulse Ox 99 08/28/17 06:40 Intake & Output 08/27/17 08/28/17 08/28/17 18:59 06:59 18:59 Intake Total 425 Output Total 400 400 Balance 25 -400 Weight 85.5 kg 85.5 kg Intake: IV 425 Magnesium Sulfate-D5w Pmx 200 1 gm In Dextrose/Water 1 100ml.bag @ 100 mls/hr IVPB Q1H [facility] Rx#: [id number] Sodium Chloride 0.9% 1, 225 000 ml @ 75 mls/hr IV . [id number] ON LICENSE OF [facility] Rx#:[id number] Output: Urine 400 400 Other: Voiding Method Toilet Toilet Toilet Urinal # Voids 1 1 # Bowel Movements 1 - Exam Gen.: in stated age, no acute distress Heart: Normal S1-S2 Lungs: Clear to auscultation bilaterally Abdomen: Soft, no tenderness, positive bowel sounds in all 4 quadrant no guarding or rebound Skin: No new rash Psych: Alert and oriented 3 Neuro: No focal deficit - Labs CBC & Chem 7: 08/28/17 06:45 08/28/17 06:45 Labs: Abnormal Lab Results - Last 24 Hours (Table) 08/27/17 08/28/17 08/28/17 Range/Units 13:00 06:45 06:45 RBC 3.51 L 2.96 L (4.30-5.90) m/uL Hgb 10.3 L 8.8 L D (13.0-17.5) gm/dL Hct 32.8 L 27.4 L (39.0-53.0) % PT (9.0-12.0) sec INR (<1.2) Chloride 109 H (98-107) mmol/L BUN 34 H (9-20) mg/dL Glucose 124 H (74-99) mg/dL Calcium 8.3 L (8.4-10.2) mg/dL 08/28/17 Range/Units 06:45 RBC (4.30-5.90) m/uL Hgb (13.0-17.5) gm/dL Hct (39.0-53.0) % PT 12.8 H (9.0-12.0) sec INR 1.4 H (<1.2) Chloride (98-107) mmol/L BUN (9-20) mg/dL Glucose (74-99) mg/dL Calcium (8.4-10.2) mg/dL Assessment and Plan Plan: 1. Acute upper GI bleed area 2. Symptomatic anemia. 3. Atrial fibrillation on Coumadin at home. 4. Hypertension. 5. Hyperlipidemia. 6. Asthma. 7. Benign prostatic up atrophy We will repeat CBC this afternoon continue monitoring vital signs this morning hold IV fluid infusion while patient's on regular diet and consider resuming fluid after midnight 1 patient is nothing by mouth patient will be receiving EGD in the morning by non profit job [employer] and discharge planning based on clinical progress. Coumadin is still on hold and decision for anticoagulation need to be made after EGD in the morning. Patient and family is agreeable to the current treatment plan and understands this can benefit from being on anticoagulation
[2017-08-28 13:24] LABS: Basophils % (A) 0 %; Eosinophils # (A) 0.3 k/uL (0-0.7); Eosinophils % (A) 3 %; HCT 31.6 % (39.0-53.0); HGB 10.1 gm/dL (13.0-17.5); Lymphocytes # (A) 1.6 k/uL (1.0-4.8); Lymphocytes % (A) 16 %; MCH 29.8 pg (25.0-35.0); MCHC 31.9 g/dL (31.0-37.0); MCV 93.2 fL (80.0-100.0); Mean Platelet Volume 9.1; Monocytes # (A) 0.5 k/uL (0-1.0); Monocytes % (A) 5 %; Neutrophils # (A) 7.5 k/uL (1.3-7.7); Neutrophils % (A) 74 %; Platelet Count 220 k/uL (150-450); RBC 3.39 m/uL (4.30-5.90); RDW 14.4 % (11.5-15.5); WBC 10.1 k/uL (3.8-10.6)
--- NOTE | 2017-08-28 14:12 | P.PN ---
Subjective Progress Note Date: 08/28/17 A 81-year-old male patient who was admitted to the ICU yesterday because of GI bleeding and the patient had melanotic stools, 2 at home and another one here in the hospital. The patient got admitted to the ICU and the patient has not bled since. The patient is on long-term articulation with warfarin for chronic atrial fibrillation fibrillation. The patient's INR was at 3.2 at a time of admission. He had a stable creatinine of 1.3 with a BUN of 45. No hematemesis. No coffee-ground emesis. No abdominal pain. No chest pain. His cardiac rhythm is still in atrial fibrillation at a controlled rate of asked the. No chest pain. No shortness of breath. No previous bouts of GI bleed. The patient denies having any liver disease. No intake of any nonsteroidal anti -inflammatory medication. Cardiac catheterization from October 2014 showed mild obstructive coronary artery disease involving the left circumflex and the right coronary artery and the patient had a normal left ejection fraction and end- diastolic pressure. Noted the patient was given 5 mg of vitamin K and today's INR is down to 2.3. The patient also received no blood. On 08/28/2017, the patient had a small bout of a tarry stool earlier today however he has not seen large amounts of bloody bowel movement. He did have another one just prior to leaving the ICU. Hemoglobin dropped slightly at the patient is asymptomatic and his, comfortable remains hemodynamically stable. He is awaiting an EGD which needs to be done probably within next 24 hours. Otherwise, he denies having any chest pain or any other complaints for now. No nausea. No vomiting. No abdominal pain. No altered mentation. No aspiration. No hematemesis. No hemoptysis. Objective - Vital Signs Vital signs: Vital Signs Temp 98 F 08/28/17 06:40 Pulse 70 08/28/17 06:40 Resp 16 08/28/17 06:40 BP 130/67 08/28/17 06:40 Pulse Ox 99 08/28/17 06:40 Intake & Output 08/27/17 08/28/17 08/28/17 18:59 06:59 18:59 Intake Total 425 Output Total 400 400 Balance 25 -400 Weight 85.5 kg 85.5 kg Intake: IV 425 Magnesium Sulfate-D5w Pmx 200 1 gm In Dextrose/Water 1 100ml.bag @ 100 mls/hr IVPB Q1H [facility] Rx#: [id number] Sodium Chloride 0.9% 1, 225 000 ml @ 75 mls/hr IV . [id number] [facility] Rx#:[id number] Output: Urine 400 400 Other: Voiding Method Toilet Toilet Toilet Urinal # Voids 1 1 # Bowel Movements 1 - Exam - Constitutional General appearance: cooperative, no acute distress - EENT Eyes: anicteric sclerae, EOMI, PERRLA, normal appearance ENT: NA/AT, normal oropharynx - Neck Neck: no lymphadenopathy, normal ROM, no other, no rigidity, no stridor, no thyromegaly - Respiratory Respiratory: bilateral: CTA, negative: diminished, dullness, rales, rhonchi, wheezing - Cardiovascular Rhythm: Consistent with atrial fibrillation the patient has an irregular rhythm Heart sounds: normal: S1, S2. Irregular Abnormal Heart Sounds: no systolic murmur, no diastolic murmur, no rub, no S3 Gallop, no S4 Gallop, no click, no other - Gastrointestinal General gastrointestinal: normal bowel sounds, no tenderness and abdominal exam is soft,Abdominal exam revealed normal bowel sounds. The abdomen was soft, non- tender, and without masses, organomegaly, or appreciable enlargement of the abdominal aorta. - Integumentary Integumentary: decreased turgor, normal - Neurologic Neurologic: CNII-XII intact - Musculoskeletal Musculoskeletal: gait normal, strength equal bilaterally - Psychiatric Psychiatric: A&O x's 3, appropriate affect, intact judgment & insight - Labs CBC & Chem 7: 08/28/17 13:12 08/28/17 06:45 Labs: Abnormal Lab Results - Last 24 Hours (Table) 08/27/17 08/27/17 08/28/17 Range/Units 05:05 05:05 06:45 RBC 2.96 L (4.30-5.90) m/uL Hgb 8.8 L D (13.0-17.5) gm/dL Hct 27.4 L (39.0-53.0) % PT (9.0-12.0) sec INR (<1.2) Chloride (98-107) mmol/L BUN (9-20) mg/dL Glucose (74-99) mg/dL Hemoglobin A1c 6.6 H (4.0-6.0) % Calcium (8.4-10.2) mg/dL Iron 58 L (65-175) ug/dL 08/28/17 08/28/17 08/28/17 Range/Units 06:45 06:45 13:12 RBC 3.39 L (4.30-5.90) m/uL Hgb 10.1 L (13.0-17.5) gm/dL Hct 31.6 L (39.0-53.0) % PT 12.8 H (9.0-12.0) sec INR 1.4 H (<1.2) Chloride 109 H (98-107) mmol/L BUN 34 H (9-20) mg/dL Glucose 124 H (74-99) mg/dL Hemoglobin A1c (4.0-6.0) % Calcium 8.3 L (8.4-10.2) mg/dL Iron (65-175) ug/dL Assessment and Plan Plan: Assessment 1 GI bleeding, acute, likely of an upper GI source as the patient has developed melanotic stool and there is a drop in hemoglobin from a baseline of 12.3 down to as low as 8.8 and today's hemoglobin is at 10.1. INR is at 1.4 and the coagulopathy has been reversed with vitamin K. Awaiting EGD tomorrow. 2 chronic atrial fibrillation, rate controlled maintained on anticoagulation with warfarin on outpatient basis 3 hypertension 4 hyperlipidemia 5 obstructive sleep apnea. 6 gout unclear if the patient took any form of nonsteroidals on outpatient basis knowing that he was having some gouty issues on his left great toe. 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 Monitor hemoglobin. Normal saline at the rate of 75 mL an hour. EGD in a.m. Hemodynamically stable. We'll sign off the case as the patient does not need ICU monitoring for now. Leave the rest of the management to medicine gastroenterology.
--- NOTE | 2017-08-28 15:19 | P.CONS ---
History of Present Illness - Reason for Consult Consult date: 08/27/17 GI bleeding - History of Present Illness The patient is an 81-year-old male who presented to the emergency room with the complaint of melanotic stools that started the morning of admission. The patient has history of chronic atrial fibrillation and has been on Coumadin for that. Around 1 week prior to admission he developed gouty arthritis involving his great toe. He believes he was treated with allopurinol and he is not certain if he had taken any NSAIDs. The patient had history of Whipple procedure several years back for what turned out to be a benign lesion and did not require any further therapy. He denied any nausea, vomiting or any hematemesis. No hematochezia. He did have some stomach upset after he was started on the gout medications, otherwise, he had no abdominal symptoms or change in bowel habits. Review of Systems Constitutional: Denies fever, chills, sweats, weight gain, or loss. HEENT: Negative for migraines, blurred vision or loss, earaches, drainage, tinnitus, oral mucosal lesions, dysphagia, or odynophagia. Cardiac: Negative for chest pain. Has history of atrial fibrillation. Respiratory: Negative for shortness of breath, hemoptysis, cough, or sputum production. Has history of obstructive sleep apnea. Gastrointestinal: See HPI for pertinent findings. Genitourinary: Negative for hematuria, urgency, frequency, polyuria, dysuria. Musculoskeletal: Negative for muscle aches, swelling, arthritis, and arthralgias , with the exception of recent left toe got the arthritis as mentioned above and history of osteoarthritis. Neurologic: Negative for stroke or TIA. Endocrine: Negative for diabetes or thyroid problems. Skin: Negative for rash or itching. Psychiatric: Negative history for depression and anxiety. 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, seasonal environmental ALLERGIES History of Any Multi-Drug Resistant Organisms: None Reported Past Surgical History: Heart Catheterization, Orthopedic Surgery Additional Past Surgical History / Comment(s): orif right ankle-screws in place , umbilical hernia, right shoulder-rotator cuff repair, right knee replaced, whipple procedure, dental implants, cataracts-lens implants,colonoscopy Past Anesthesia/Blood Transfusion Reactions: No Reported Reaction Additional Past Anesthesia/Blood Transfusion Reaction / Comm: never recieved blood Smoking Status: Never smoker - Past Family History Father History Unknown: Yes Additional Family Medical History / Comment(s): pt was only 1.5 years old when his father . Mother Family Medical History: Renal Disease Brother(s) Family Medical History: Diabetes Mellitus Medications and Allergies Home Medications Medication Instructions Recorded Confirmed Type Albuterol Sulfate [Proair Hfa] 1 - 2 puff INHALATION RT-Q6H PRN 08/24/14 History Ascorbic Acid [Vitamin C] 1 tab PO DAILY 08/24/14 08/26/17 History Atenolol 25 mg PO HS 08/24/14 08/26/17 History Budesonide [Pulmicort] 0.5 mg INHALATION RT-BID 08/24/14 08/26/17 History Calcium Polycarbophil [Fibercon] 625 mg PO BID 08/24/14 08/26/17 History Cholecalciferol [Vitamin D3] 1 tab PO DAILY 08/24/14 08/26/17 History Montelukast [Singulair] 10 mg PO HS 08/24/14 08/26/17 History Pravastatin Sodium [Pravachol] 20 mg PO HS 08/24/14 08/26/17 History Losartan [Cozaar] 25 mg PO DAILY #30 tab 08/28/14 08/26/17 Rx Glucosam/Az-Msm1/C/Tarun/Bosw 1 tab PO BID 10/21/14 08/26/17 History [Glucosamine-Chondroitin Tablet] Creon (Unknown Dose) 1 cap PO AC-TID 08/26/17 08/26/17 History Furosemide [Lasix] 20 mg PO QAM PRN 08/26/17 08/26/17 History Omeprazole 20 mg PO DAILY PRN 08/26/17 08/26/17 History Allergies Allergy/AdvReac Type Severity Reaction Status Date / Time amoxicillin Allergy Unknown Verified 08/26/17 12:50 shellfish derived [Shrimp] AdvReac Nausea & Verified 08/26/17 12:50 Vomiting Physical Exam Vitals: Vital Signs Temp Pulse Resp BP Pulse Ox 08/27/17 09:00 73 30 H 91/52 96 08/27/17 08:00 97.8 F 64 14 102/56 97 08/27/17 07:00 68 23 85/61 93 L 08/27/17 06:00 70 23 102/62 95 08/27/17 05:00 97.9 F 59 L 20 96/54 96 08/27/17 04:00 62 23 91/49 95 08/27/17 03:00 64 22 90/55 96 08/27/17 02:00 64 24 88/54 93 L 08/27/17 01:00 75 48 H 90/48 97 08/27/17 00:00 69 23 96/56 97 08/26/17 23:00 70 20 119/61 95 08/26/17 22:05 72 12 91/45 96 08/26/17 22:00 69 20 102/63 96 08/26/17 21:30 68 21 121/67 96 08/26/17 21:00 73 18 130/62 97 08/26/17 20:30 78 22 118/66 99 08/26/17 20:10 84 18 118/66 98 08/26/17 20:00 98.2 F 72 25 H 133/72 98 08/26/17 19:50 78 21 133/72 96 08/26/17 19:40 72 25 H 133/72 99 08/26/17 19:34 133/72 99 08/26/17 17:22 98.5 F 73 16 129/79 97 08/26/17 15:01 97.6 F 72 16 127/78 96 08/26/17 13:32 90 16 118/74 98 08/26/17 12:56 80 16 126/73 98 08/26/17 12:23 98.3 F 82 16 131/71 93 L Intake and Output 08/26/17 08/27/17 08/27/17 22:59 06:59 14:59 Intake Total 200 Output Total 0 250 Balance 0 -250 200 Intake: IV 200 Magnesium Sulfate-D5w Pmx 200 1 gm In Dextrose/Water 1 100ml.bag @ 100 mls/hr IVPB Q1H [facility] Rx#: [id number] Output: Urine 0 250 Other: Voiding Method Toilet Toilet Toilet Urinal Urinal Urinal # Voids 0 0 # Bowel Movements 1 Weight 87.5 kg General appearance: Appeared stated age, very pleasant in no acute distress. HEENT: Head is normocephalic and atraumatic. Pupils are equal and reactive. Oropharynx is clear without lesions. Neck: Supple without lymphadenopathy. Trachea midline. Heart: S1 S2. Irregular rhythm. No gallops or friction rubs. Lungs: No crackles or wheezes are heard. Abdomen: Soft, nontender, nondistended with bowel sounds. No peritoneal signs. No palpable organomegaly or masses. Extremities: Normal skin color and turgor. No cyanosis, rash, ulceration, clubbing, or edema. Radial and pedal pulses are 2/4 bilaterally. Neurological: No focal deficits. Strength and sensation are grossly intact. Results CBC & Chem 7: 08/28/17 13:12 08/28/17 06:45 Labs: Abnormal Lab Results - Last 24 Hours (Table) 08/26/17 08/26/17 08/26/17 Range/Units 12:45 12:45 12:45 WBC 12.0 H (3.8-10.6) k/uL RBC 4.01 L (4.30-5.90) m/uL Hgb 12.3 L (13.0-17.5) gm/dL Hct 36.3 L (39.0-53.0) % Neutrophils # 9.6 H (1.3-7.7) k/uL PT 29.0 H (9.0-12.0) sec INR 3.2 H (<1.2) APTT 32.3 H (22.0-30.0) sec Chloride 108 H (98-107) mmol/L BUN 45 H (9-20) mg/dL Creatinine 1.30 H (0.66-1.25) mg/dL Glucose 120 H (74-99) mg/dL POC Glucose (mg/dL) (75-99) mg/dL Total Protein (6.3-8.2) g/dL Albumin (3.5-5.0) g/dL 08/26/17 08/26/17 08/26/17 Range/Units 18:15 19:37 22:50 WBC (3.8-10.6) k/uL RBC 3.51 L 3.21 L (4.30-5.90) m/uL Hgb 10.6 L 9.6 L (13.0-17.5) gm/dL Hct 31.7 L 29.3 L (39.0-53.0) % Neutrophils # (1.3-7.7) k/uL PT (9.0-12.0) sec INR (<1.2) APTT (22.0-30.0) sec Chloride (98-107) mmol/L BUN (9-20) mg/dL Creatinine (0.66-1.25) mg/dL Glucose (74-99) mg/dL POC Glucose (mg/dL) 127 H (75-99) mg/dL Total Protein (6.3-8.2) g/dL Albumin (3.5-5.0) g/dL 08/27/17 08/27/17 08/27/17 Range/Units 05:05 05:05 05:05 WBC (3.8-10.6) k/uL RBC 3.11 L (4.30-5.90) m/uL Hgb 9.4 L (13.0-17.5) gm/dL Hct 28.4 L (39.0-53.0) % Neutrophils # (1.3-7.7) k/uL PT 20.8 H (9.0-12.0) sec INR 2.3 H (<1.2) APTT (22.0-30.0) sec Chloride 110 H (98-107) mmol/L BUN 44 H (9-20) mg/dL Creatinine (0.66-1.25) mg/dL Glucose 113 H (74-99) mg/dL POC Glucose (mg/dL) (75-99) mg/dL Total Protein 5.1 L (6.3-8.2) g/dL Albumin 2.9 L (3.5-5.0) g/dL Assessment and Plan Assessment: GI bleeding and anemia. An upper GI source is likely based on his presentation. It is likely that his treatment for gouty arthritis and him being on Coumadin has contributed to his presentation. Plan: Agree with your current management. We'll continue acid suppressive therapy. We will follow with you closely and consider an upper endoscopy in the next 24- 48 hours based on his overall course and his INR levels.
[2017-08-28] MEDS: ATENOLOL 25 MG TAB PO SCH (21:30)
[2017-08-28] MEDS: PRAVASTATIN SODIUM 20 MG TAB PO SCH (21:30)
[2017-08-28 21:32] VITALS: RESP 18
[2017-08-29 07:18] LABS: Basophils % (A) 0 %; Eosinophils # (A) 0.2 k/uL (0-0.7); Eosinophils % (A) 3 %; HCT 26.9 % (39.0-53.0); HGB 8.7 gm/dL (13.0-17.5); Lymphocytes % (A) 14 %; MCH 30.1 pg (25.0-35.0); MCHC 32.5 g/dL (31.0-37.0); MCV 92.8 fL (80.0-100.0); Mean Platelet Volume 9.8; Monocytes # (A) 0.3 k/uL (0-1.0); Monocytes % (A) 5 %; Neutrophils # (A) 5.4 k/uL (1.3-7.7); Neutrophils % (A) 77 %; Platelet Count 171 k/uL (150-450); RBC 2.89 m/uL (4.30-5.90); RDW 14.6 % (11.5-15.5); WBC 7.1 k/uL (3.8-10.6)
[2017-08-29 07:24] LABS: INR 1.2 (<1.2); Prothrombin Time 11.8 sec (9.0-12.0)
[2017-08-29 07:42] LABS: Calcium 8.4 mg/dL (8.4-10.2); Magnesium 1.8 mg/dL (1.6-2.3); Phosphorus 3.2 mg/dL (2.5-4.5); Potassium 4.8 mmol/L (3.5-5.1)
[2017-08-29] MEDS: LOSARTAN 25 MG TAB PO SCH (09:25)
[2017-08-29] MEDS: PANTOPRAZOLE 40 MG/10 ML VIAL IV SCH (09:25)
[2017-08-29] MEDS: ASCORBIC ACID 500 MG TAB PO SCH (09:27)
--- NOTE | 2017-08-29 12:53 | P.DS ---
Providers Date of admission: 08/26/17 13:43 Expected date of discharge: 08/29/17 Attending physician: Ml Craig Consults: 08/26/17 13:43 Consult Physician Routine Consulting Provider: Gloria Pimentel Consult Reason/Comments: GIB Do you want consulting provider notified?: Yes 08/26/17 15:56 Consult Physician Stat Consulting Provider: Sabino Overton Consult Reason/Comments: GIB Do you want consulting provider notified?: Already Contacted Primary care physician: Tao Martinez [facility] Course: This is an 81-year-old gentleman patient of Dr. Andre Martinez. He has underlying history of chronic atrial fibrillation on maintenance Coumadin for anticoagulation, history of pancreatic lesion, they suspected that this 95% cancer that time, however and was taken out with a Whipple's procedure 2014, this was benign. Since then patient was on Creon, also history of asthma, COPD , hyperlipidemia, hypertension, Patient presented to the emergency room secondary to acute melena that started this morning, he has 2 black stools, without diarrhea no hematochezia. Patient denies any NSAID use, steroid, and denies any alcohol use. He is chronically on intermittent dosing for Prilosec as advised by her [facility] physician, patient. He had abdominal pain approximately one week ago, not cramping epigastric region, patient thought this was related to the gout medication "allopurinol"? that was started, as the uric acid level was high and that he does have toe pain. Last colonoscopy 10 years ago, no previous EGD with patient denies any neurologic complaints, no chest pain no pulmonary complaints no recent falls patient does not require any assistive devices for ambulation, patient requires chronically the use of Creon secondary to malabsorption, otherwise bowel movements every day In the emergency room laboratories included Hemoccult positive black stools, hemoglobin 12.3, double basic count of 12.0, INR 3.2, creatinine of 1.3, BUN elevated 45 platelet counts normal, liver tests is normal troponin normal. Patient was admitted to ICU, for closer monitoring, Coumadin will be held, one- time dose of by mouth vitamin K 5 mg. 08/27: Patient continued to be hemodynamic a stable overnight no major events reported by nursing staff repeated hemoglobin last 2 times showed stability and patient stated that he was weak when he walked to the bathroom patient is still nothing by mouth at the bedside. 08/28: Patient reported black tarry stool this morning but no further nausea or vomiting patient is tolerating regular diet no major events reported nursing staff. Patient hemoglobin dropped slightly this morning but patient is sitting asymptomatic and stated that he was up to the bathroom with decreased weakness compared to yesterday. 08/29: Patient was seen and examined on rounds today. He continues to have black tarry stool, no nausea vomiting. He was noted to have a slight drop in his hemoglobin today, it's dropped to 8.7. Coumadin is currently being held, INR 1.2. He is scheduled for EGD this morning, if clear he'll be discharged today. Discharge diagnoses 1. Acute GI bleed, upper GI suspected, GI on consult, plan for EGD today, if clear will be discharged home. 2. Chronic atrial fibrillation, on anticoagulation, Coumadin on hold secondary to acute GI bleed 3. Hypertensive cardiovascular disease 3. Hyperlipidemia 4. Asthma asymptomatic/COPD asymptomatic 5. Benign pancreatic mass requiring Whipple's procedure 2014 6. 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 BPH without lower tract symptomatology 8. Hypeuricemia with recent gout 9. CKD stage III The above impression and plan of care have been discussed and directed by signing physician, patient was seen and evaluation by signing physician. Yeimi Horan nurse practitioner acting as scribe. Patient Condition at Discharge: Good Plan - Discharge Summary Discharge Rx Participant: No New Discharge Prescriptions: New Pantoprazole [Protonix] 40 mg PO DAILY #30 tablet. Continue Pravastatin Sodium [Pravachol] 20 mg PO HS Montelukast [Singulair] 10 mg PO HS Albuterol Sulfate [Proair Hfa] 1 - 2 puff INHALATION RT-Q6H PRN PRN Reason: Shortness Of Breath Budesonide [Pulmicort] 0.5 mg INHALATION RT-BID Cholecalciferol [Vitamin D3] 1 tab PO DAILY Ascorbic Acid [Vitamin C] 1 tab PO DAILY Calcium Polycarbophil [Fibercon] 625 mg PO BID Atenolol 25 mg PO HS Losartan [Cozaar] 25 mg PO DAILY #30 tab Glucosam/Az-Msm1/C/Tarun/Bosw [Glucosamine-Chondroitin Tablet] 1 tab PO BID Furosemide [Lasix] 20 mg PO QAM PRN PRN Reason: Edema Creon (Unknown Dose) 1 cap PO AC-TID Discharge Medication List Albuterol Sulfate [Proair Hfa] 1 - 2 puff INHALATION RT-Q6H PRN 08/24/14 [ History] Ascorbic Acid [Vitamin C] 1 tab PO DAILY 08/24/14 [History] Atenolol 25 mg PO HS 08/24/14 [History] Budesonide [Pulmicort] 0.5 mg INHALATION RT-BID 08/24/14 [History] Calcium Polycarbophil [Fibercon] 625 mg PO BID 08/24/14 [History] Cholecalciferol [Vitamin D3] 1 tab PO DAILY 08/24/14 [History] Montelukast [Singulair] 10 mg PO HS 08/24/14 [History] Pravastatin Sodium [Pravachol] 20 mg PO HS 08/24/14 [History] Losartan [Cozaar] 25 mg PO DAILY #30 tab 08/28/14 [Rx] Glucosam/Az-Msm1/C/Tarun/Bosw [Glucosamine-Chondroitin Tablet] 1 tab PO BID [History] Creon (Unknown Dose) 1 cap PO AC-TID 08/26/17 [History] Furosemide [Lasix] 20 mg PO QAM PRN 08/26/17 [History] Pantoprazole [Protonix] 40 mg PO DAILY #30 tablet. 08/29/17 [Rx] Follow up Appointment(s)/Referral(s): Tony Medrano MD [STAFF PHYSICIAN] - 09/13/17 4:30 pm Tao Martinez MD [Primary Care Provider] - 10/05/17 10:00 am Ambulatory/Diagnostic Orders: Prothrombin Time INR [LAB.AMB] Time Frame: 3 Days, Facility: [facility] , Location: Laboratory Physician Reference Discharge Disposition: HOME SELF-CARE
[2017-08-29] MEDS: SODIUM CHLORIDE 0.9% 1,000 ML IV SCH (13:11)
[2017-08-29 13:16] VITALS: BMI 23.3
[2017-08-29] MEDS ORDERED: IV FLUID CONTINUATION 1,000 ML IV ONE ×2 (13:34)
[2017-08-29] MEDS ORDERED: LIDOCAINE 1% INJ 10MG/ML (20 ML MDV) ONE (15:34)
[2017-08-29] MEDS ORDERED: PROPOFOL 10 MG/ML 20 ML VIAL IV ONE (15:34)
--- NOTE | 2017-08-29 16:30 | P.PCN ---
Date of Procedure: 08/29/17 Procedure(s) Performed: Procedure: Esophagogastroduodenoscopy and biopsy. Preoperative diagnosis: GI bleeding and anemia. Postoperative diagnosis: 1. Prior Whipple surgery with gastritis of the gastric remnant and benign marginal ulcers with no bleeding at the time of this exam. 2. Biopsies obtained from the gastric remnant. Preparation and sedation: Were provided by anesthesia. Brief clinical history: The patient is an 81-year-old male who presented to the emergency room with the complaint of melanotic stools that started the morning of admission. The patient has history of chronic atrial fibrillation and has been on Coumadin for that. Around 1 week prior to admission he developed gouty arthritis involving his great toe. He believes he was treated with allopurinol and he is not certain if he had taken any NSAIDs. The patient had history of Whipple procedure several years back for what turned out to be a benign lesion and did not require any further therapy. He denied any nausea, vomiting or any hematemesis. No hematochezia. He did have some stomach upset after he was started on the gout medications, otherwise, he had no abdominal symptoms or change in bowel habits. His coagulopathy corrected and his hemoglobin remained around 8.7. Other details are masses summarized in the history and physical and dictated consultations and progress notes. This evaluation is to assess for a source of GI bleeding. Procedure: With the patient on his left lateral decubitus position and after informed consent and adequate sedation, I passed the Olympus-GIF 160 video upper endoscope through the cricopharyngeus down the esophagus. GE junction was around 40-41 cm from the incisors. The esophagus did not show any obvious erosions, ulcers, strictures, Hirsch's esophagus, mucosal tears, varices or bleeding. The endoscope was then advanced into the gastric remnant. Patient had prior Whipple surgerywith partial gastric resection with Billroth II-type anastomosis. There was some mottling and erythema in the gastric remnant and at the margins just on the small bowel sides of the anastomosis there were ulcerations covered with white exudate benign-appearing without any stigmata of bleeding or any strictures or obstruction. The small bowel was inspected to a good distance and appeared normal and there was no evidence of bleeding at the time of this exam. I obtained biopsies from the gastric remnant before the endoscope was withdrawn. The patient tolerated the procedure well. Plan: The patient was reassured. I discussed the findings with him and with his . Will allow clear liquid diet and advance to 40 through his. It would be advisable to stay off anticoagulation until further healing of these ulcerations. We would be happy to follow as outpatient as well.
[2017-08-29 16:53] VITALS: BP 114/75; PULSE 71; TEMP 98.2
== END 2017-08-29 19:19 | disposition home or self-care (01) | DRG 378 ==
LOC: EC 12:10 → 4MS4W 13:43 → 6ICU 16:10 → 5MS5E 08-27 18:25 → 5ONC 08-28 13:10
PROVIDERS: ADMIT Family Medicine; ATTEND Family Medicine
PROC: 0DB68ZX Excision of Stomach, Via Natural or Artificial Opening Endoscopic, Diagnostic (ICD-10-PCS; principal; 2017-08-29 08:05)
DX: K92.2 Gastrointestinal hemorrhage, unspecified (principal); K91.2 Postsurgical malabsorption, not elsewhere classified; I48.2 Chronic atrial fibrillation; J44.9 Chronic obstructive pulmonary disease, unspecified; I13.10 Hypertensive heart and chronic kidney disease without heart failure, with stage 1 through stage 4 chronic kidney disease, or unspecified chronic kidney disease; D62 Acute posthemorrhagic anemia; K29.70 Gastritis, unspecified, without bleeding; M10.9 Gout, unspecified; J30.2 Other seasonal allergic rhinitis; E78.5 Hyperlipidemia, unspecified; R79.1 Abnormal coagulation profile; M19.91 Primary osteoarthritis, unspecified site; G47.33 Obstructive sleep apnea (adult) (pediatric); T45.515A Adverse effect of anticoagulants, initial encounter; N40.0 Benign prostatic hyperplasia without lower urinary tract symptoms; Z79.01 Long term (current) use of anticoagulants; Z79.51 Long term (current) use of inhaled steroids; Z79.899 Other long term (current) drug therapy; Z96.651 Presence of right artificial knee joint; Z90.411 Acquired partial absence of pancreas; Z87.81 Personal history of (healed) traumatic fracture; Z87.19 Personal history of other diseases of the digestive system; Z87.01 Personal history of pneumonia (recurrent); Z96.5 Presence of tooth-root and mandibular implants; Z98.42 Cataract extraction status, left eye; Z98.41 Cataract extraction status, right eye; Z96.1 Presence of intraocular lens; Z88.0 Allergy status to penicillin; Z91.013 Allergy to seafood; Z84.1 Family history of disorders of kidney and ureter; Z83.3 Family history of diabetes mellitus; N18.3 Chronic kidney disease, stage 3 (moderate); I25.10 Atherosclerotic heart disease of native coronary artery without angina pectoris; Z87.11 Personal history of peptic ulcer disease
CPT/HCPCS: 36415; 43239; 80048; 80053; 81003; 82272; 83036; 83540; 83550; 83605; 83735; 84100; 84484; 85025; 85027; 85610; 85730; 86850; 86900; 86901; 88305; 88342; 96374; 99285

== ENCOUNTER → 2017-09-19 | Outpatient (CLI) | payer MEDICARE, BC ==
[2017-09-19 14:23] LABS: Basophils % (A) 0 %; Eosinophils # (A) 0.2 k/uL (0-0.7); Eosinophils % (A) 2 %; HCT 31.3 % (39.0-53.0); HGB 9.7 gm/dL (13.0-17.5); Hypochromasia Marked; Lymphocytes # (A) 1.1 k/uL (1.0-4.8); Lymphocytes % (A) 13 %; MCH 28.2 pg (25.0-35.0); MCHC 31.2 g/dL (31.0-37.0); MCV 90.7 fL (80.0-100.0); Mean Platelet Volume 7.9; Monocytes # (A) 0.7 k/uL (0-1.0); Monocytes % (A) 8 %; Neutrophils # (A) 6.4 k/uL (1.3-7.7); Neutrophils % (A) 73 %; Platelet Count 285 k/uL (150-450); Poikilocytosis Slight; RBC 3.45 m/uL (4.30-5.90); RDW 15.4 % (11.5-15.5); WBC 8.7 k/uL (3.8-10.6)
== END | disposition home or self-care (01) ==
LOC: LABWHC1 13:26
DX: B96.81 Helicobacter pylori [H. pylori] as the cause of diseases classified elsewhere (principal)
CPT/HCPCS: 36415; 85025

== ENCOUNTER 2018-02-07 16:29 | Emergency (ER) | payer MEDICARE, BC ==
[2018-02-07] MEDS ORDERED: CALCIUM CHLORIDE 100 MG/ML 10 ML SYRINGE ONE (16:30)
[2018-02-07] MEDS ORDERED: MAGNESIUM SULFATE SYG 4.06 MEQ/ML SYRINGE ONE (16:30)
[2018-02-07] MEDS ORDERED: EPINEPHrine 10 ML SYRINGE (0.1 MG/ML) ONE (16:30)
[2018-02-07] MEDS ORDERED: SODIUM BICARB 8.4% 50 ML SYR (1 MEQ/ML) ONE (16:30)
[2018-02-07 16:39] LABS: Glucose,Whole Blood 126 mg/dL (75-99)
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
== END 2018-02-07 20:30 | disposition expired ==
LOC: EC 16:29
DX: I46.9 Cardiac arrest, cause unspecified (principal); I48.2 Chronic atrial fibrillation; I49.01 Ventricular fibrillation; I10 Essential (primary) hypertension; J45.909 Unspecified asthma, uncomplicated; E78.5 Hyperlipidemia, unspecified; G47.33 Obstructive sleep apnea (adult) (pediatric); Z99.89 Dependence on other enabling machines and devices; Z79.51 Long term (current) use of inhaled steroids; Z79.899 Other long term (current) drug therapy; Z88.0 Allergy status to penicillin; Z91.013 Allergy to seafood
CPT/HCPCS: 99291; 92950; 36415; J3475; J0171